=== PATIENT | female | born 1995 | race Two or more races ===

== ENCOUNTER 2018-09-08 12:12 | Emergency (ER) | payer OTHER ==
[~2018-09-08] VITALS: Ht 157.5 cm; Wt 58.5 kg
[2018-09-08 12:16] VITALS: BP 111/76
[2018-09-08] MEDS ORDERED: ONDANSETRON ODT 4 MG PO ONE (12:30)
[2018-09-08 12:56] LABS: BASOPHILS # (AUTO) 0.02 x10^3/uL (0-0.1); BASOPHILS % (AUTO) 0 % (0-1); EOSINOPHILS # (AUTO) 0.02 x10^3/uL (0-0.4); EOSINOPHILS % (AUTO) 0 % (1-7); LYMPHOCYTES # (AUTO) 0.93 x10^3/uL (1-3.4); LYMPHOCYTES % (AUTO) 10 % (22-44); MD NO; MEAN CORPUSCULAR HEMOGLOBIN 32.5 pg (27.0-34.8); MEAN CORPUSCULAR HGB CONC 34.3 g/dL (32.4-35.8); MEAN CORPUSCULAR VOLUME 94.7 fL (80-100); MEAN PLATELET VOLUME 9.9 fL (7.4-10.4); MONOCYTES # (AUTO) 0.27 x10^3/uL (0.2-0.8); MONOCYTES % (AUTO) 3 % (2-9); NEUTROPHILS # (AUTO) 8.15 x10^3/uL (1.8-6.8); NEUTROPHILS % (AUTO) 87 % (42-75); PLATELET COUNT 269 x10^3/uL (130-400); RED BLOOD COUNT 4.38 x10^6/uL (3.82-5.3); RED CELL DISTRIBUTION WIDTH 13.8 % (9.6-15.2)
[2018-09-08 13:07] LABS: ALBUMIN 3.8 g/dL (3.4-5.0); ANION GAP 6 mmol/L (5-15); CALCIUM 8.3 mg/dL (8.5-10.1); CHLORIDE 108 mmol/L (98-107)
[2018-09-08 13:15] LABS: ALANINE AMINOTRANSFERASE 22 U/L (12-78); ALKALINE PHOSPHATASE 86 U/L (45-117); BILIRUBIN,TOTAL 0.6 mg/dL (0.2-1.0); CREATININE 0.61 mg/dL (0.55-1.02)
--- NOTE | 2018-09-08 14:16 | NUR ---
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
[2018-09-08] MEDS ORDERED: ONDANSETRON ODT 4 MG ONE (14:35)
--- NOTE | 2018-09-08 14:45 | NUR ---
urine specimen cup given.
--- NOTE | 2018-09-08 15:03 | NUR ---
RE'D REPORT FROM VINEET PARKER PT IS IN [facility]
[2018-09-08 15:23] LABS: MICROSCOPIC INDICATED
[2018-09-08 16:09] LABS: CULTURE INDICATED? NO
--- NOTE | 2018-09-08 16:12 | NUR ---
Patient/Caregiver given discharge instructions and they have confirmed that they understand the instructions. Patient ambulatory with steady gait.
== END 2018-09-08 16:13 | disposition home or self-care (01) ==
LOC: ED 14:58
DX: R11.2 Nausea with vomiting, unspecified (principal); R53.1 Weakness; R42 Dizziness and giddiness; R53.83 Other fatigue
CPT/HCPCS: 36415; 70360; 80053; 81001; 83690; 84703; 85025; 93005; 99284; Q0162